=== PATIENT | female | born 1970 | race Caucasian/White ===

== ENCOUNTER 2016-09-25 15:41 | Emergency (ER) | payer OTHER ==
[~2016-09-25] VITALS: Ht 180.3 cm; Wt 89.8 kg
[~2016-09-25 15:41] MED LIST: ASPIRIN81 M1 PO; BCP; MICRONASE1.25 MG PO; ORTHO TRI-CYCLE1 TA2 PO
[2016-09-25 15:55] VITALS: BP 154/114
--- NOTE | 2016-09-25 17:15 | NUR ---
PT AMBULATED TO BED 3
--- NOTE | 2016-09-25 17:25 | NUR ---
PATIENT PRESENTS TO ED WITH SP FALL AT 1415 .PT STATES SHE GOT PAIN IN HER BOTH KNEES AND HAND.PT SUSTAINED BRUISES ON BOTH KNEES AND BOTH HAND. DENIES N/V/D; SKIN IS PINK/WARM/DRY; AAOX4; LUNGS CLEAR BL; HR EVEN AND REGULAR; PT DENIES ANY FEVER, CP. W/ SLIGHT SOB,PT HAS A COUGH; PATIENT STATES PAIN OF 9/10 AT THIS TIME; VSS; PATIENT POSITIONED FOR COMFORT; HOB ELEVATED; BEDRAILS UP X2; BED DOWN. ER MD MADE AWARE OF PT STATUS.
--- NOTE | 2016-09-25 17:51 | NUR ---
Tammie meléndez in [facility] - 09/25/16 at 1753 by [facility] Patient being evaluated by physician at bedside.
--- NOTE | 2016-09-25 17:59 | NUR ---
DR. ARCE EVALUATING PATIENT AT BEDSIDE.
[2016-09-25] MEDS ORDERED: KETOROLAC 60 MG/2 ML VIAL IM ONE (18:05)
[2016-09-25] MEDS ORDERED: BACITRACIN OINT 500 UNITS/GM PKT TP ONE (18:05)
[2016-09-25] MEDS ORDERED: LIDOCAINE 1% 500 MG/50 ML VIAL INJ ONE (18:40)
[2016-09-25] MEDS ORDERED: LIDOCAINE 1% ED 50 ML ONE (18:41)
--- NOTE | 2016-09-25 18:55 | NUR ---
PRENANCY TEST NEGATIVE
--- NOTE | 2016-09-25 19:05 | NUR ---
TORADOL 60 MG WAS GIVEN IM VIA DELTOID MUSCLE.PT REQUESTED NOT TO PUT TORADOL IN GLUTEUS PART.
--- NOTE | 2016-09-25 19:13 | NUR ---
PT AAO. SITTING COMFORTABLY ON BED. NO ACUTE DISTRESS NOTED. NEEDS ATTENDED VSS.WILL CONTINUE TO MONITOR PT.
--- NOTE | 2016-09-25 19:28 | NUR ---
Patient discharged with v/s stable. Written and verbal after care instructions given and explained. Patient alert, oriented and verbalized understanding of instructions. Ambulatory with steady gait. All questions addressed prior to discharge. ID band removed. Patient advised to follow up with PMD. Rx of NORCO AND MOTRIN given. Patient educated on indication of medication including possible reaction and side effects. Opportunity to ask questions provided and answered.
[2016-09-25 19:34] VITALS: BP 154/114
== END 2016-09-25 19:28 | disposition home or self-care (01) ==
LOC: MED 15:41
DX: S60.512A Abrasion of left hand, initial encounter (principal); M79.674 Pain in right toe(s); M25.562 Pain in left knee; E11.9 Type 2 diabetes mellitus without complications; Z79.82 Long term (current) use of aspirin; W18.39XA Other fall on same level, initial encounter; Y93.89 Activity, other specified; Y92.89 Other specified places as the place of occurrence of the external cause; Y99.8 Other external cause status
CPT/HCPCS: 73562; 73630; 96372; 99284; J1885; J2001